=== PATIENT | male | born 1955 | race Caucasian/White ===

== ENCOUNTER 2017-10-31 09:25 | Day surgery (SDC) | payer BC ==
[~2017-10-31] VITALS: Ht 172.7 cm; Wt 102.9 kg
[2017-10-31] MEDS ORDERED: ASPIRIN E.C. 8181 MG PO (10:13)
[2017-10-31] MEDS ORDERED: THEROMEGA1000 MG PO (10:14)
[2017-10-31] MEDS ORDERED: MULTI VITAMINS1 TAB PO (10:20)
[2017-10-31] MEDS ORDERED: ZESTRIL 20MG TA20 MG PO (10:20)
[2017-10-31] MEDS ORDERED: MAXZIDE 50 MG-71 TAB PO (10:20)
[2017-10-31] MEDS ORDERED: CELEBREX 200MG200 MG PO (10:21)
[2017-10-31] MEDS ORDERED: PROBIOTIC FORMU1 CAP PO (10:21)
[2017-10-31 11:19] VITALS: BP 108/66; PULSE 85; TEMP 99.6
[2017-10-31 11:23] VITALS: BP 108/66; PULSE 85; TEMP 99.6
[2017-10-31 14:40] VITALS: BP 106/61; PULSE 88; TEMP 97.6
[2017-10-31 15:40] VITALS: BP 112/65; PULSE 82
[2017-10-31 19:53] VITALS: BP 122/61; PULSE 98; TEMP 98.1
[2017-11-01 00:22] VITALS: BP 111/52; PULSE 95; TEMP 98.3
[2017-11-01 04:46] VITALS: BP 129/56; PULSE 89; TEMP 97.7
[2017-11-01] MEDS ORDERED: NORCO 325 MG-7.1 TAB PO (06:05)
[2017-11-01] MEDS ORDERED: ASPI325T6 PO (06:05)
[2017-11-01 07:28] LABS: HEMATOCRIT 34.3 % (42.0-52.0)
[2017-11-01 07:36] VITALS: BP 122/61; PULSE 96; TEMP 97.6
[2017-11-01 07:41] LABS: CALCIUM 8.3 mg/dL (8.4-10.2); CREATININE, serum 1.07 mg/dL (0.66-1.25); POTASSIUM 4.3 mmol/L (3.4-5.0)
== END 2017-11-01 11:33 | disposition home or self-care (01) ==
LOC: SURG 09:25 → JCC 09:25 → SDCO 09:25 → EDSTATUS 12:15 → SURG 12:15 → SDCO 11-01 11:33 → JCC 11-01 11:33
PROVIDERS: Orthopaedic Surgery
DX: T84.7XXA Infection and inflammatory reaction due to other internal orthopedic prosthetic devices, implants and grafts, initial encounter (principal); Z79.82 Long term (current) use of aspirin; Z79.899 Other long term (current) drug therapy
CPT/HCPCS: C1751; C1776; J0690; J1100; J1885; J2250; J2405; J2704; J2765; J2795; J3010; J3370; J7040; J7120

== ENCOUNTER → 2018-08-23 | Outpatient (CLI) | payer BC ==
[~2018-08-23] MED LIST: ASPI325T6 PO; ASPIRIN E.C. 8181 MG PO; CELEBREX 200MG200 MG PO; MAXZIDE 50 MG-71 TAB PO; MULTI VITAMINS1 TAB PO; NORCO 325 MG-7.1 TAB PO; PROBIOTIC FORMU1 CAP PO; THEROMEGA1000 MG PO; ZESTRIL 20MG TA20 MG PO
[2018-08-23 13:01] LABS: SYNOVIAL FLUID APPEARANCE TURBID; SYNOVIAL FLUID COLOR RED
[2018-08-23 13:04] LABS: SYNOVIAL FLUID RBC 235000 /mm3 (0-0); SYNOVIAL FLUID WBC 110231 /mm3 (200-600)
== END ==
LOC: COL.RAD 12:15
PROVIDERS: Orthopaedic Surgery
DX: M25.572 Pain in left ankle and joints of left foot (principal); Z98.890 Other specified postprocedural states

== ENCOUNTER 2018-08-29 11:43 | Inpatient (IN) | payer BC ==
[~2018-08-29] VITALS: Ht 172.7 cm; Wt 102.0 kg
[2018-09-04] VITALS (13 sets, daily range): BP systolic 106–143; BP diastolic 57–87; PULSE 80–111; TEMP 97.7–98.4
[2018-09-04] MEDS ORDERED: MINOCYCLIN100 MG/CAP PO (12:23)
[2018-09-04] MEDS ORDERED: ASPIRIN 81M81 MG/TA2 PO (12:24)
--- NOTE | 2018-09-04 12:25 | NUR ---
Patient admitted to room 5 using scooter to keep weight off the left ankle. Hai wrap dressing noted to be clean and dry around the ankle. Assisted to cart. Patient readied for surgery and order obtained for PICC line placement prior to surgery as stated in the history and physical. Clean scrub done to on the left lower extremity and open area kept covered with telfa dressing and not removed. Patient states that his has been doing dressing changes at home BID and has only been having minimal drainage. Patient moved to PACU per cart for PICC line placement by Zaynab GIL. Belongings moved to PACU with patient.
--- NOTE | 2018-09-04 19:36 | NUR ---
Patient has done well post op. VSS. No complaints of pain. Block still working. L.ankle drg intact. LLE iced & elevated. He has been up to the bathroom, Non weight bearing with knee scooter. Iv antibiotic per orders to [facility] in [place]. Jason & scds to RLE. Patient tolerated dinner. no n/v. Bedside report to Mariaelena GIL
--- NOTE | 2018-09-04 20:00 | NUR ---
Report received. 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 Up in room-tolerated diet. Denies pain. Left lower extremity with maira bandage-C/D/I. Block still present-cant wiggle toes-cap refill brisk, toes are pink-some feeling directly below the knee-not normal-tingles when touched. Denies need at this time. Does need to have a bowel BM-up to bathroom with QXO-oxrafh-uxbeimvha well. Call light within reach. Bed in low position. Will monitor.
--- NOTE | 2018-09-05 02:00 | NUR ---
Chart review comoleted-noted to have medication allergies on H&P not listed in EMR. Visited with patient and denies any medications allergies. States he is not allergic to any medications-only bee stings. Denies pain at this time. Unable to move toes and still does not feel touch. Will monitor.
[2018-09-05 03:58] VITALS: BP 149/78; PULSE 79; TEMP 97.9
[2018-09-05 05:49] LABS: HEMATOCRIT 42.1 % (42.0-52.0); HEMOGLOBIN 13.1 g/dl (13.5-18.0)
--- NOTE | 2018-09-05 06:10 | NUR ---
Dr. Silva here to see patient.
[2018-09-05 07:34] VITALS: BP 126/59; PULSE 97; TEMP 97.9
--- NOTE | 2018-09-05 10:24 | NUR ---
JOSE C met with the patient to discuss discharge plan. The patient lives in [place] with his , Ellen. He reports needing some assistance with bathing and has a knee scooter and crutches. He states that his helps him with bathing. The patient's PCP is Dr. Yaw Méndez and he receives his medications at [facility] in [place]. He reports no difficulties obtaining his meds. The patient does not have advanced directives, but he states that him and his are planning on meeting with an county attorney to complete them. The patient plans to return home with his upon discharge. The patient is in need of IV antibiotics upon discharge. The patient reports that he received IV antibiotics through the [facility] in the past and that he would prefer to receive them there again. SW awaiting ID's recommendations for antibiotics.
--- NOTE | 2018-09-05 11:26 | NUR ---
Patient alert and oriented, answers questions appropriately. See assessment. LLE with hard splint and SUMMER in place, small amount of drainage noted around ankle. Neuros assessment completed, numbness noted to toes, but able to wiggle them. NWB to LLE. C/o pain 10 to LLE. No other c/o at this time.
[2018-09-05 11:56] VITALS: BP 133/68; PULSE 92; TEMP 97.9
[2018-09-05 14:49] LABS: ALBUMIN 3.3 gm/dL (3.5-5.0); BASO % 0.5 % (0.0-2.0); BILIRUBIN,TOTAL 0.2 mg/dL (0.0-1.0); C-REACTIVE PROTEIN 3.1 mg/dL (0.0-0.9); CALCIUM 8.6 mg/dL (8.4-10.2); CREATININE, serum 1.03 (0.66-1.25); EOS # 0.1 (0.0-0.7); EOS % 1.9 % (0-4.0); GRAN # 5.4 (1.4-6.5); GRAN % 73.5 % (42.2-75.2); HEMATOCRIT 42.8 % (42.0-52.0); HEMOGLOBIN 13.6 g/dl (13.5-18.0); LYMPH # 1.2 (1.2-3.4); LYMPH % 16.5 % (20.0-51.0); MEAN CELL VOLUME 96 fl (80.0-100.0); MEAN CORPUSCULAR HEMOGLOBIN 30 pg (27.0-31.0); MEAN CORPUSCULAR HGB CONC 32 g/dl (33.0-37.0); MONO # 0.5 (0.1-0.6); MONO % 7.2 % (1.7-9.3); PLATELET COUNT 323 K/mm3 (130-400); POTASSIUM 4.6 mmol/L (3.4-5.0); RED BLOOD COUNT 4.47 M/mm3 (4.20-5.60); TOTAL PROTEIN 7.1 gm/dL (6.4-8.2)
[2018-09-05 15:08] LABS: ERYTHROCYTE SEDIMENTATION RATE 48 mm/hr (0-30)
--- NOTE | 2018-09-05 15:29 | NUR ---
The ID physician recommended IV Daptomycin. JOSE C contacted and faxed the script to Ela at [facility]. Ela requests that the patient arrive at their hospital at 1300. JOSE C informed the patient. The patient verbalized understanding. The patient is to discharge back home with his today, 09/05. No additional needs at this time.
--- NOTE | 2018-09-05 15:57 | NUR ---
Discharge instructions reveiwed with patient and spouse, verbalized understanding. Discharged with PICC in place, paperwork for IVABT sent with patient. Discharged via wheelchair to auto/home with family at [id number].
== END 2018-09-05 15:58 | disposition home or self-care (01) | DRG 517 ==
LOC: INPTSU 09-04 10:21 → JCC 09-04 12:00 → SURG 09-04 15:47
PROVIDERS: Internal Medicine Infectious Disease; Physician Assistant; ADMIT Orthopaedic Surgery
PROC: 0SHG08Z Insertion of Spacer into Left Ankle Joint, Open Approach (ICD-10-PCS; 2018-09-04)
PROC: 02HV33Z Insertion of Infusion Device into Superior Vena Cava, Percutaneous Approach (ICD-10-PCS; 2018-09-04)
PROC: 0SWG0JZ Revision of Synthetic Substitute in Left Ankle Joint, Open Approach (ICD-10-PCS; principal; 2018-09-04 13:00)
DX: T84.59XA Infection and inflammatory reaction due to other internal joint prosthesis, initial encounter (principal); B95.61 Methicillin susceptible Staphylococcus aureus infection as the cause of diseases classified elsewhere; Z91.030 Bee allergy status; I10 Essential (primary) hypertension
CPT/HCPCS: C1713; C1751; J0690; J0878; J1100; J1885; J2250; J2405; J2704; J2795; J3010; J3370; J7040; J7050; J7120

== ENCOUNTER → 2019-08-29 | Outpatient (CLI) | payer BC ==
[~2019-08-29] MED LIST changes: +ASPIRIN 81M81 MG/TA2 PO; +MINOCYCLIN100 MG/CAP PO
== END ==
LOC: COL.RAD 12:26
DX: M25.551 Pain in right hip (principal)
CPT/HCPCS: J3301; Q9967